=== PATIENT | female | born 1960 | race Caucasian/White ===

== ENCOUNTER 2021-12-10 08:42 | Outpatient (CLI) | payer OTHER | END 2021-12-10 08:56 | disposition home or self-care (01) | LOC: MAMO-SONO 08:42 | DX: Z12.31 Encounter for screening mammogram for malignant neoplasm of breast (principal) ==

== ENCOUNTER 2023-07-30 08:28 | Outpatient (CLI) | payer OTHER | END 2023-07-30 08:41 | disposition home or self-care (01) | LOC: MAMO-SONO 08:28 | DX: Z12.31 Encounter for screening mammogram for malignant neoplasm of breast (principal) ==

== ENCOUNTER 2023-08-21 09:10 | Outpatient (CLI) | payer OTHER | END 2023-08-21 09:16 | disposition home or self-care (01) | LOC: SONOGRAMA 09:10 | DX: M25.562 Pain in left knee (principal) ==

== ENCOUNTER → 2024-06-01 13:26 | Outpatient (CLI) | payer OTHER | END | disposition home or self-care (01) | LOC: NUCLEAR 05-12 13:00 | DX: M81.0 Age-related osteoporosis without current pathological fracture (principal) ==

== ENCOUNTER 2024-07-15 07:50 | Outpatient (CLI) | payer OTHER | END 2024-07-15 07:55 | disposition home or self-care (01) | LOC: RAD 07:50 | DX: M79.672 Pain in left foot (principal) ==

== ENCOUNTER 2024-08-03 08:12 | Outpatient (CLI) | payer OTHER | END 2024-08-03 08:19 | disposition home or self-care (01) | LOC: MAMO-SONO 08:12 | DX: N64.4 Mastodynia (principal); Z12.31 Encounter for screening mammogram for malignant neoplasm of breast ==

== ENCOUNTER 2025-08-03 10:18 | Outpatient (CLI) | payer OTHER | END 2025-08-03 10:25 | disposition home or self-care (01) | LOC: RAD 10:18 | DX: R05.1 Acute cough (principal) ==